=== PATIENT | female | born 1995 | race Caucasian/White ===

== ENCOUNTER → 2019-12-19 11:18 | Outpatient (CLI) | payer OTHER, MEDICAID, SELFPAY ==
--- NOTE | ~2019-12-19 | US_ITS ---
EXAMINATION: US OB <= 14 weeks fetus DATE: 12/19/2019 12:26 INDICATION: Evaluate well-being TECHNIQUE: Real-time transabdominal and transvaginal obstetric ultrasound. FINDINGS: No prior studies for comparison. The uterus measures 11.7 x 6.3 x 7.6 cm. There is an intrauterine gestational sac, with pole id entified. The crown rump length measures 5.08 cm, which correlates with a estimated gestational age of 11 weeks 5 days. heart tones are identified measuring 162 BPM. No evidence for subchorioni c hemorrhage. Ovaries within normal limits. No free fluid in the pelvis. IMPRESSION: 1. SL IUP with an EGA of 11 weeks, 5 days (EDC by current ultrasound of 05/04/2021). Reviewed, dictated and finalized at location A. IMPRESSION: 1. SL IUP with an EGA of 11 weeks, 5 days (EDC by current ultrasound of 021).
== END ==
PROVIDERS: PCP Obstetrics & Gynecology; Visit Provider Obstetrics & Gynecology
DX: Z34.90 Encounter for supervision of normal pregnancy, unspecified, unspecified trimester (principal); Z3A.11 11 weeks gestation of pregnancy
CPT/HCPCS: 76801

== ENCOUNTER → 2020-02-20 14:51 | Outpatient (CLI) | payer OTHER, MEDICAID, SELFPAY ==
--- NOTE | ~2020-02-20 | US_ITS ---
EXAMINATION: US OB >= 14 weeks Fetus DATE: 02/20/2020 15:54 INDICATION: Second trimester anatomic survey TECHNIQUE: Real-time ultrasound of the pelvis was performed. COMPARISON: None. FINDINGS: There is a single living fetus in breech presentation. The placenta is anterior and 4.4 cm from the i nternal cervical os. heart rate is 163 beats per minute (bpm). cardiac activity and feta l movement are noted. The amniotic fluid index is subjectively normal. The following anatomy was identified as normal: 4 chamber heart 3 vessel cord cord insertion kidneys urinary bladder stomach spine diaphragm ventricles cisterna magna cerebellum The following biometric data were obtained: Biparietal diameter (BPD): 4.8 cm; head circumference (HC): 18.6 cm; abdominal circumference (AC): 15 .6 cm; femur length (FL): 3.1 cm. These measurements are concordant. Estimated weight is 354 g +/- 53 g, which correlates with the 31st percentile when 07/04/2020 is used as estimated date of delivery. As single measurements, these parameters are each equal to the following estimated gestational ages w ith ranges of +/- 2 standard deviations: BPD: 20 weeks 5 days ( 19 weeks 0 days - 22 weeks 3 days). HC: 21 weeks 0 days ( 19 weeks 3 days - 22 weeks 3 days). AC: 20 weeks 6 days ( 18 weeks 5 days - 22 weeks 6 days). FL: 19 weeks 6 days ( 18 weeks 0 days - 21 weeks 5 days). estimated gestational age based solely on measurements from this exam is 20 weeks 4 days +/- 1 weeks 3 days. IMPRESSION: 1. Single living fetus in breech presentation. 2. Estimated weight is 354 g +/- 53 g, which correlates with the 31st percentile when 07/04/2020 is used as estimated date of delivery. Reviewed, dictated and finalized at location B. IMPRESSION: 1. Single living fetus in breech presentation. 2. Estimated weight is 354 g +/- 53 g, which correlates with the 31st per centile when 07/04/2020 is used as estimated date of delivery.
== END ==
PROVIDERS: Visit Provider Physician Assistant
DX: Z34.01 Encounter for supervision of normal first pregnancy, first trimester (principal); Z36.89 Encounter for other specified antenatal screening; Z3A.20 20 weeks gestation of pregnancy
CPT/HCPCS: 76805

== ENCOUNTER → 2020-04-20 11:21 | Outpatient (CLI) | payer OTHER, MEDICAID, SELFPAY ==
--- NOTE | ~2020-04-20 | US_ITS ---
EXAMINATION: US OB follow up DATE: 04/20/2020 11:40 INDICATION: Assess growth during third trimester . TECHNIQUE: Real-time ultrasound of the pelvis was performed. The interpreting radiologist was not pre sent for the study. COMPARISON: 02/20/2020 FINDINGS: There is a single living fetus in vertex presentation. The placenta is anterior and not low-lying wi th caudal margin 5.0 cm from the internal cervical os. heart rate is 144 beats per minute (bpm) . The amniotic fluid index is 16.4 cm, which is normal (5th%-95%: 9.2-23.1 cm at 29 weeks estimated gestational age). The following biometric data were obtained: BPD: 7.7 cm -> 30 weeks 6 days Head circumference: 27.7 cm -> 30 weeks 2 days Abdominal circumference: 27.1 cm -> 31 weeks 1 days Femur length: 5.7 cm -> 29 weeks 6 days These measurements are concordant. Head circumference to abdominal circumference ratio: 1.02 (normal range 0.97-1.18). Estimated weight: 1611 g (+/-) 242 g. or 3 lbs. 9 oz. (+/-) 9 oz. IMPRESSION: 1. Single living fetus in vertex presentation with heart rate of 144 bpm. 2. Normal amniotic fluid index of 16.4 cm. 3. Estimated weight is 84th percentile by Hadlock criteria when 07/04/2020 is used as the estima arcadio date of delivery (KUSHAL). Please correlate with clinical information or earlier ultrasounds for mos t accurate KUSHAL. Reviewed, dictated and finalized at location A. ND MATE IMPRESSION: 1. Single living fetus in vertex presentation with heart rate of 144 bpm. 2. Normal amniotic fluid index of 16.4 cm. 3. Estimated weight is 84th percentile by Hadlock criteria when 07/04/2020 is used as the estimated date of delivery (KUSHAL). Please correlate with clinica l information or earlier ultrasounds for most accurate KUSHAL.
== END ==
PROVIDERS: Visit Provider Obstetrics & Gynecology
DX: Z34.01 Encounter for supervision of normal first pregnancy, first trimester (principal); Z3A.00 Weeks of gestation of pregnancy not specified
CPT/HCPCS: 76816

== ENCOUNTER → 2020-05-12 13:57 | Outpatient (CLI) | payer OTHER, MEDICAID, SELFPAY ==
--- NOTE | ~2020-05-12 | US_ITS ---
EXAMINATION: US OB follow up DATE: 05/12/2020 14:33 INDICATION: Estimated size greater than expected for estimated gestational age. Assess growth d uring third trimester . TECHNIQUE: Real-time ultrasound of the pelvis was performed. The interpreting radiologist was not pre sent for the study. COMPARISON: 04/20/2020 FINDINGS: There is a single living fetus in vertex presentation. The placenta is anterior and not low-lying. F etal heart rate is 150 beats per minute (bpm). The amniotic fluid index is 16.1 cm, which is normal (5th%-95%: 8.6-24.2 cm at 32 weeks estimated gestational age). The following biometric data were obtained: BPD: 8.5 cm -> 34 weeks 2 days Head circumference: 31.5 cm -> 35 weeks 2 days Abdominal circumference: 29.9 cm -> 33 weeks 6 days Femur length: 6.7 cm -> 34 weeks 3 days These measurements are concordant. Head circumference to abdominal circumference ratio: 1.05 (normal range 0.94-1.11). Estimated weight: 2376 g (+/-) 356 g. or 5 lbs. 4 oz. (+/-) 13 oz. IMPRESSION: 1. Single living fetus in vertex presentation with heart rate of 150 bpm. 2. Normal amniotic fluid index of 16.1 cm. 3. Estimated weight is 90th percentile by Hadlock criteria when 07/04/2020 is used as the estima arcadio date of delivery (KUSHAL). Please correlate with clinical information or earlier ultrasounds for mos t accurate KUSHAL. Reviewed, dictated and finalized at location A. T FINISHER IMPRESSION: 1. Single living fetus in vertex presentation with heart rate of 150 bpm. 2. Normal amniotic fluid index of 16.1 cm. 3. Estimated weight is 90th percentile by Hadlock criteria when 07/04/2020 is used as the estimated date of delivery (KUSHAL). Please correlate with clinica l information or earlier ultrasounds for most accurate KUSHAL.
== END ==
PROVIDERS: Visit Provider Physician Assistant
DX: O35.8XX9 Maternal care for other (suspected) fetal abnormality and damage, other fetus (principal); Z3A.00 Weeks of gestation of pregnancy not specified
CPT/HCPCS: 76816

== ENCOUNTER → 2020-06-17 13:02 | Outpatient (CLI) | payer OTHER, MEDICAID, SELFPAY ==
--- NOTE | ~2020-06-17 | US_ITS ---
EXAMINATION: US OB follow up EXAM DATE: 06/17/2020 13:19 INDICATION: Growth, check position. 3rd trimester. TECHNIQUE: Pelvic obstetrical transabdominal sonogram was performed by a technologist. There are mu ltiple grayscale and Doppler images available for interpretation. There are no earlier studies of th is gestation for comparison. FINDINGS: There is a single fetus identified in vertex presentation with a heart rate of 131 beats pe r minute. The placenta is located in the anterior position. There is no sonographic evidence of retr oplacental hemorrhage identified. The amniotic fluid index is 19.4 centimeters, which is normal. BIOMETRIC DATA: Biparietal diameter (BPD): 9.5cm ----------------> 38 weeks 6 days. Head circumference (HC): 33.5 cm ----------------> 38 weeks 2 days. Abdominal circumference (AC): 35.6 cm ----------> 39 weeks 3 days. Femur length (FL): 7.2 cm --------------------------> 36 weeks 6 days. These measurements are concordant. HC/AC ratio is 0.94 (The 5th -- 95th percentile range is 0.88-1.06. Estimated weight is 3569 g +/- 535 g. This is the 85th percentile when the currently reported clinical gestation age 37 weeks 4 days, clinical estimated date of delivery (KUSHAL-OPE) 07/04/2020 is us ed. estimated gestational age based on measurements from this exam is 38 weeks 3 days, with an estimated date of delivery (KUSHAL-AUA) 06/28/2020. IMPRESSION: 1. Single fetus in vertex presentation with heart rate 131 beats per minute. 2. Estimated weight of 3569 grams, 85th percentile using the currently reported clinical gesta tion age of 37 weeks 4 days, KUSHAL(OPE) 07/04/2020. 3. Normal ZAHIDA 19.4 cm. Reviewed, dictated and finalized at location A. SETTER IMPRESSION: 1. Single fetus in vertex presentation with heart rate 131 beats per minute. 2. Estimated weight of 3569 grams, 85th percentile using the currently r eported clinical gestation age of 37 weeks 4 days, KUSHAL(OPE) 07/04/2020. 3. Normal ZAHIDA 19.4 cm.
== END ==
PROVIDERS: Visit Provider Obstetrics & Gynecology
DX: Z03.74 Encounter for suspected problem with fetal growth ruled out (principal)
CPT/HCPCS: 76816

== ENCOUNTER 2020-06-30 11:03 | Observation (INO) | payer OTHER, MEDICAID, SELFPAY ==
--- NOTE | 2020-06-30 13:34 | OBADM ---
This patient, Payal Simmons, admitted to the OB room OB Post 117 for observation. Patient/family oriented to hospital policies and general routines including ID bracelet, bed and alarms, visiting hours, pain management, procedures, bathroom and other care routines, personal items, smoking policy, room service/diet, and visiting hours. Patient/Family are encouraged to report perceived risks to care and to ask questions if they do not understand what they are told or what they should do.
[2020-06-30 13:39] LABS: Add Urine Microscopic? YES; Appearance Urine Cloudy (Clear); Bacteria Urine Trace /hpf; Bilirubin Urine Negative (Negative); Blood Urine 2+ (Negative); Color Urine Yellow (Yellow); Glucose Urine UA Negative (Negative); Ketones Urine Negative (Negative); Leukocyte Esterase Ur Trace LEU/UL (NEGATIVE); Mucus Urine Heavy /lpf; Nitrate Urine Negative (Negative); Protein Urine 2+ mg/dL (Negative); RBC Urine 0-2 /hpf (0-2); Specific Grav Ur 1.025 (1.001-1.035); Squamous Epithelial Cell Urine Many /hpf (Few); Urobilinogen Urine Negative mg/dL (<2.0)
--- NOTE | 2020-06-30 13:45 | PC.NURSE ---
1200 speculum exam noted no blood or discharge. sve closed (pt closing legs tight) baby head is low causing her tailbone pain. uterine irritability discussed vs ctxs.
--- NOTE | 2020-06-30 19:08 | PM.OBTRLD ---
OB - Triage/Final Diagnosis Visit Information Date of evaluation: 06/30/20 Comments/Additional reasons for admission: I have assessed the risk for this patient, Payal Simmons, and determined that she would benefit from observation care. Evaluation Baseline heart rate: 144 Variability: Average (6-10) monitor accelerations: Present monitor decelerations: None Laboratory results: Laboratory Tests 06/30/20 13:22 Urine Color Yellow Urine Appearance Cloudy H Urine pH 6.0 Ur Specific [place] 1.025 Urine Protein 2+ H Urine Glucose (UA) Negative Urine Ketones Negative Ur Blood (Man) 2+ H Urine Nitrate Negative Urine Bilirubin Negative Urine Urobilinogen Negative Ur Leukocyte Esterase Trace H Urine RBC 0-2 Urine WBC 7-9 H Ur Squamous Epith Cells Many H Urine Bacteria Trace Urine Mucus Heavy H Final Diagnosis (1) False labor: Code(s): O47.9 - False labor, unspecified Status: Acute
--- NOTE | 2020-07-17 03:20 | P.PNOB_ITS ---
OB - PN: Subj Subjective Date/time seen: 07/02/20 03:20 Patient comments: no complaints baby status: doing well [place] feeding status: pumping and bottle feeding OB - PN A/P Assessment and Plan (1) Term delivered: Code(s): O80 - Encounter for full-term uncomplicated delivery Status: Acute (2) Previous section: Code(s): Z98.891 - History of uterine scar from previous surgery Status: Acute (3) Homozygous MTHFR mutation C677T: Code(s): E72.12 - Methylenetetrahydrofolate reductase deficiency Status: Acute (4) Large for gestational age fetus: Status: Acute (5) Anemia affecting : Code(s): O99.019 - Anemia complicating , unspecified trimester Status: Acute Plan day: 2 Plan: routine care, discharge home and follow up 6 weeks Time Spent With Patient Time: Total time spent is greater than 50% in coordination of care (as documented) at patient's floor/unit and/or counseling patient: Review of Systems Review of Systems: All systems reviewed & are unremarkable except as noted in HPI and below Exam Const: General: cooperative HENMT: Head: normal to inspection Eyes: General: appearance normal, both eyes and all related structures Neck: Neck: normal visual inspection Chest: Chest palpation & inspection: normal inspection of the chest Resp: Effort & Inspection: normal respiratory effort Cardio: Rate: regular rate Rhythm: regular rhythm GI: Inspection: normal to inspection and incision (ddi) GI Palp: Yes Soft to palpation : External Female Exam: normal external appearance Bimanual exam- vagina & uterus: non-tender Back/Spine/Pelvis: Back: no CVA tenderness Skin: General skin exam: normal color Neuro: General: patient oriented x3 Extrem: General: normal to inspection Psych: Appearance: grossly normal
== END 2020-06-30 13:20 | disposition home or self-care (01) ==
PROVIDERS: Admitting Provider Obstetrics & Gynecology; Visit Provider Obstetrics & Gynecology
DX: O47.03 False labor before 37 completed weeks of gestation, third trimester (principal); Z3A.39 39 weeks gestation of pregnancy
CPT/HCPCS: 81001; 87086; 87088; G0378; G0379

== ENCOUNTER 2020-07-01 18:00 | Inpatient (IN) | payer OTHER, MEDICAID, SELFPAY ==
[2020-07-01] VITALS (62 sets, daily range): BP systolic 98–150; BP diastolic 47–105; PULSE 56–99; RESP 15–18; TEMP 36.2–36.6; O2SAT 91–100; BMI 22.6
--- NOTE | 2020-07-01 18:27 | WPDANESEPP ---
Anes - Eval Pre Procedure Procedure: Operation Date: 07/01/20 19:00 Proposed Procedures p Repeat Low Transverse Section - Gerardo Mixon MD Date/Time: 07/01/20 18:27 Preop Diagnosis: previous c section Pre Op Diagnosis: C Section Patient Data Age: 25 Gender: F Height: Weight: Allergies Allergy/AdvReac Type Severity Reaction Status Date / Time No Known Allergies Allergy Verified 06/18/20 12:41 Home Medications Medication Instructions Recorded Confirmed Type PNV cmb#95-ferrous fumarate-FA 1 tablet PO DAILY 06/18/20 06/18/20 History [] Patient hx anesthesia problems: none Family hx anesthesia problems: none PMFSH Family History Family History (Updated 06/18/20 @ 12:42 by Gale Diaz RN) Other No pertinent family history Social History Social History Substance use: never Gender identity (if verbalized by the patient): Female Spiritual care concerns: No Exam Day of Procedure 07/01/20 18:27
--- NOTE | 2020-07-01 18:28 | PM.IMHP ---
H&P: HPI History of Present Illness Date/Time: 07/01/20 18:28 Chief Complaint: Spontaneous onset of labor Term Previous desires repeat section Narrative: Payal Simmons is a 25 year old female presents for spontaneous onset of labor carri every 5 minutes at 39w4d. c/b MTHFR, hyperemesis, and LGA fetus. Previous scheduled for repeat on 07/03. Will proceed with repeat c section tonight.I explained her condition procedure and risks involved including but not limited to bleeding infection injury to bladder bowel baby pelvic vessels DVT pneumonia wound infection endometritis UTI the risk of anesthesia she understands accepts and agrees to proceed Review of Systems Review of Systems: All systems reviewed & are unremarkable except as noted in HPI and below Constitutional: Constitutional: Reports no additional constitutional complaints Eyes: Eyes: Reports no additional eye complaints ENT: Reports system reviewed and no additional complaints, except as documented Cardiovascular: Cardiovascular: Reports no additional cardiovascular complaints Respiratory: Respiratory: Reports no additional respiratory complaints Gastrointestinal: Gastrointestinal: Reports no additional gastrointestinal complaints Genitourinary: Genitourinary: Reports no additional female genitourinary complaints Musculoskeletal: Musculoskeletal: Reports no additional musculoskeletal complaints Integumentary/Breasts: Skin/Breast: Reports system reviewed and no additional complaints, except as docu Neurologic: Reports system reviewed and no additional complaints, except as documented Psychiatric: Psychiatric: Reports no additional psychiatric complaints PMFSH Past Medical History Medical History (Updated 07/01/20 @ 18:34 by Gerardo Mixon MD) Generalized anxiety disorder Homozygous MTHFR mutation [id number] Large for gestational age fetus Term Surgical History Surgical History (Updated 07/01/20 @ 18:35 by Gerardo Mixon MD) Previous section 01/18/20181398 lbs.MPrimary CesareanFull [facility] position[facility]ical Family History Family History Other No pertinent family history Social History Social History (Updated 07/01/20 @ 18:36 by Gerardo Mixon MD) Smoking status: Never smoker Second hand tobacco smoke exposure: No Alcohol intake: never Substance use: former Substance use type: marijuana Living arrangements: with family Occupation/Education: occupation Gender identity (if verbalized by the patient): Female Sexual Orientation (if Verbalized by the Patient): Straight or Heterosexual Spiritual care concerns: No Agree to blood products: Yes Meds Home Medications and Allergies Home Medications Medication Instructions Recorded Confirmed Type PNV cmb#95-ferrous fumarate-FA 1 tablet PO DAILY 06/18/20 06/18/20 History [] Allergies Allergy/AdvReac Type Severity Reaction Status Date / Time No Known Allergies Allergy Verified 06/18/20 12:41 Exam Const: General: no acute distress HENMT: Head: normal to inspection Ears: hearing grossly normal bilaterally General nose exam: Normal external nose present and Normal nares present Face and sinus: normal facial exam Mouth: Yes Normal oral and palatal mucosa present and Yes moist mucous membranes Teeth and gingiva: dentition normal Throat: posterior oropharynx normal Eyes: General: appearance normal, both eyes and all related structures Visual Lizama: normal visual lizama by confrontation Alignment and Position: alignment normal Periorbital: periorbital findings normal Eyelids: eyelids normal Conjunctivae: conjunctivae normal Sclera: sclerae normal Pupils: Equal, round and reactive pupils present EOM: EOMs intact bilaterally
--- NOTE | 2020-07-01 18:42 | P.HPUP_ITS ---
History and Physical Update Update Date/Time: 07/01/20 18:42 History and Physical has been reviewed, including an updated exam of the patient. There are NO changes in the patient's condition. Risks, benefits, and alternatives have been discussed and questions answered. Patient agrees to proceed with procedure. 24 y/o F presents for spontaneous onset of labor carri every 5 minutes at 39w4d. c/b MTHFR, hyperemesis, and LGA fetus. Previous c- section scheduled for repeat on 07/03. Will proceed with tonight due to labor informed consent obtained yes to circumcision, bottle feeding, frozen meat cutter lamar leono for BC - boy per labs, thinking Raul for name
--- NOTE | 2020-07-01 18:45 | P.HP_ITS ---
Obstetrics - Admit Note Admission Note: record reviewed. No pertinent additions to the history and/or any subsequent changes in the physical findings that are not consistent with the expected course of the were found. Additions to the history and/or subsequent changes in the physical findings follow. None. 24 y/o F presents for spontaneous onset of labor denies rupture membranes or vaginal bleeding but carri every 5 minutes for the past 4 days at 39w4d. c/b MTHFR, hyperemesis, and LGA fetus. Previous c- section scheduled for repeat on 07/03/20 will proceed with repeat C- section this evening under spinal anesthesia I explained her condition procedure and risks involved she understands accepts and agrees to proceed informed consent obtained.
[2020-07-01 18:50] LABS: Basophils Percent Auto 0.3 % (0.2-1.2); Eosinophils Percent Auto 0.2 % (0-4.4); Hematocrit 35.3 % (37.0-47.0); Immature Granulocyte Absolute 0.09 K/mm3 (0.00-0.031); Immature Granulocyte Percent A 0.8 % (0-0.5); Lymphocytes Absolute Auto 2.13 K/mm3 (0.9-3.2); Lymphocytes Percent Auto 17.9 % (18.3-44.2); Mean Corpuscular Hemoglobin 29.6 pg (26-34); Mean Corpuscular Volume 86.9 fl (80-100); Mean Platelet Volume 10.2 fl (7.4-10.4); Monocytes Percent Auto 8.5 % (2.6-8.5); Neutrophils Absolute Auto 8.6 K/mm3 (1.3-6.7); Neutrophils Percent Auto 72.3 % (45.5-73.1); Platelet Count Result 297 k/mm3 (150-375); Red Blood Count 4.06 M/mm3 (4.2-5.4); White Blood Count 11.9 K/mm3 (4.5-10.0)
[2020-07-01] MEDS: LACTATED RINGERS 1,000 ML 125 ML IV CONT (18:53)
--- NOTE | 2020-07-01 18:54 | P.OP_ITS ---
Procedure Note - Detailed Date of procedure: 07/01/20 Pre-op diagnosis: C Section Term Spontaneous onset of labor Previous desires repeat section MTHFR homozygous Generalized anxiety disorder Large for gestational age fetus Post-op diagnosis: same (Delivered viable male infant) Procedure performed: Repeat low-transverse section with delivery of viable male and placenta Description of procedure: Patient was taken to the operating room spinal anesthetic was administered in the sitting position patient was then placed in a supine position a Nice catheter was inserted her abdomen was prepped and then draped in the usual sterile fashion. Time-out was performed. Elliptical incision was made around the old scar and the old scar was excised using electrocautery. Fascia was entered with electrocautery and undermined inferior and superior. We peritoneum entered with electrocautery the vesicouterine peritoneal reflection was incised transversely a transverse incision was made to the lower uterine segment and extended bilaterally digitally rupture membranes revealed clear fluid the vertex was then delivered via the abdominal incision with fundal pressure with a nuchal cord x1 reduced upon delivery. The baby was placed on the maternal abdomen the nose and throat were bulb suction the cord was clamped and cut and the infant had spontaneous respirations and cry was handed to the nursery nurse in attendance scores 8 9 weight 8 lb 13 oz spine normal transition taken to the nursery in stable condition with a normal exam. Cord gas segment was sent. Cord blood was obtained. The placenta was then delivered intact with a three-vessel cord and the uterus contracted well with Pitocin given intravenously as well as 10 units given into the myometrium. Blood clots removed from the intrauterine cavity and then the uterine incision was repaired in 2 layers with 0 Vicryl in a running interlocking fashion the 2nd being an imbricating stitch hemostasis was excellent. Blood clots removed from the cul-de-sac and the uterus was returned to the peritoneal cavity sponge needle instrument counts were correct the anterior peritoneum was then closed with 0 Vicryl suture in a running fashion. The fascia was closed with 2. Quill S RS bilaterally. The skin was closed with absorbable bert and the skin closed with Dermabond a sterile dressing was applied. The patient was taken to the recovery room in stable condition counts correct complications none specimens pathology as above. Implants: None Anesthesia: spinal Surgeon: Gerardo Mixon MD [employer] Intelligence Officer Chief: assistant producer x2 Estimated blood loss (mL): 390 IV fluids (mL): 2,000 Urine output (mL): 200 Drains: Yes (Nice catheter) Packing: No Pathology: yes (Cord blood gases cord blood and placenta) Complications: None Condition: stable Disposition: floor Findings: Viable male infant named [id number] delivered at 7:34 p.m. spontaneous respirations and cry no observed abnormalities on the exam taken to the nursery in stable condition weight 8 lb 13 oz 20-1/2 inches long Placenta intact three-vessel cord nuchal cord x1 cord gases obtained cord blood obtained placenta sent to pathology Uterus tubes ovaries normal Counts correct Complications none Patient taken recovery room in stable condition
--- NOTE | 2020-07-01 19:25 | WPDANESEFPP ---
Anes - Eval Final PreProcedure Day of Procedure 07/01/20 19:25 Patient weight: obese Heart: regular rate and rhythm Lungs: clear to auscultation Airway: Mallampati scale class II Neurological: alert and oriented ASA classification: II Emergent: no Anesthetic plan: proceed Anesthesia type and monitoring: regional spinal and standard monitoring Informed Consent: The patient's anesthetic plan and its attendant risks and benefits were discussed with the patient/family/POA. Questions were solicited and answers provided to the satisfaction of the patient/family/POA.
[2020-07-01] MEDS: KETOROLAC 30 MG/ML VIAL (*BKC) IV PUSH (19:40)
--- NOTE | 2020-07-01 20:13 | PM.OBPRVD ---
OB - Delivery Note Procedure Delivery date: 07/01/20 Procedure: Procedures Operation Date: 07/01/20 19:00 Actual Procedures Side Surgeon p Repeat Low Transverse Section Gerardo Mixon MD Induction method: none Delivery monitor: external FHT and external uterine Route of delivery: (Repeat low-transverse) Episiotomy description: None Laceration Description: None Specimen: Yes Anesthesia type: Spinal Disposition: floor Baby Date of : 07/01/20 Time of : 19:34 Weeks of gestation at delivery: 39 gender: Male (STACEY) Weight (pounds): 8 Weight (ounces): 13 presentation: vertex position: Left Occiput Anterior Placenta delivery description: Manual Removal and Normal Configuration cord vessel description: Nuchal Cord score one minute: 8 score five minutes: 9 Twins 1: Infant gender: Male
--- NOTE | 2020-07-01 21:04 | LDADM ---
This patient, Payal Simmons, was admitted to Labor/Delivery/Recovery 120 on 07/01/20 at 18:00. Plans for labor, pain management and were discussed with patient. Patient/family oriented to hospital policies and general routines including ID bracelet, bed and alarms, visiting hours, pain management, procedures, bathroom and other care routines, personal items, smoking policy, room service/diet and guest tray routines, infant security routines, and visiting hours. Patient/Family are encouraged to report perceived risks to care and to ask questions if they do not understand what they are told or what they should do. See OBIX for further documentation.
[2020-07-01] MEDS: OXYTOCIN 30 UNITS/NS 500 ML 30 UNITS/500 ML BAG 125 UNITS IV CONT (21:47)
--- NOTE | 2020-07-01 23:00 | OBPPTRN ---
Patient transferred to post room #292 via stretcher. Support person went home to be with their other child. Oriented to unit, room, information board, rooming in, admission packet and security measures. Patient verbalizes understanding. with patient.
[2020-07-01] MEDS: MORPHINE SULFATE (*CRX) 2 MG/ML INJ 3 MG IV PUSH (23:20)
[2020-07-02] VITALS (8 sets, daily range): BP systolic 93–120; BP diastolic 52–73; PULSE 77–118; RESP 16; TEMP 36.3–37.3; O2SAT 97–100
[2020-07-02] MEDS: DEXTROSE 5%/0.45% SOD CHL 1,000 ML 125 ML IV CONT (01:39)
[2020-07-02] MEDS: ONDANSETRON INJ 4 MG/2 ML VIAL IV PUSH ×2 (01:46→09:07)
[2020-07-02] MEDS: KETOROLAC 30 MG/ML VIAL (*BKC) IV PUSH ×2 (01:52→09:08)
[2020-07-02 05:14] LABS: Hematocrit 23.3 % (37.0-47.0); Hemoglobin 7.8 g/dL (12.0-15.0); Mean Corpuscular HGB Conc 33.5 g/dl (32-36); Mean Corpuscular Hemoglobin 29.7 pg (26-34); Mean Corpuscular Volume 88.6 fl (80-100); Mean Platelet Volume 10.2 fl (7.4-10.4); Platelet Count Result 359 k/mm3 (150-375); Red Blood Count 2.63 M/mm3 (4.2-5.4); Red Cell Distribution Width 13.2 % (11.5-14.5); White Blood Count 21.7 K/mm3 (4.5-10.0)
[2020-07-02 06:18] LABS: Rapid Plasma Reagin Non-Reactive (NonReactive)
[2020-07-02 06:29] LABS: Band Neutrophils Percent 8 % (0-6); Giant Platelets Present; Lymphocytes Absolute Manual 1.95 K/mm3 (1.1-4.5); Neutrophils Absolute Manual 19.74 K/mm3 (1.7-7.2); Neutrophils Percent Manual 83 % (46-73); Platelet Estimate Increased (Adequate); Total Cells Counted 100
--- NOTE | 2020-07-02 07:32 | WPDANLDPN2 ---
Anes-Prog Note L&D Date/Time: 07/02/20 07:32 Comfortable throughout: section Neuraxial method: spinal Epidural/Spinal procedure site: clean & non-tender Neuro status: Neuro function grossly intact. Cardiovascular status: normal Respiratory status: normal Airway patency: baseline Mental status: baseline Post-Op hydration status: normal (catheter still in place) Vital Signs: Last Vital Signs Temp 36.3 C L 07/02/20 04:30 Pulse 118 H 07/02/20 04:30 Resp 16 07/02/20 04:30 BP 100/66 07/02/20 04:30 Pulse Ox 98 07/02/20 04:30 Pain score (VAS): 0 I/O: Intake & Output 07/01/20 07/01/20 07/02/20 15:59 23:59 07:59 Output Total 300 150 Balance -300 -150 Post-procedural complaints: none Patient feedback: Patient satisfied with anesthetic care.
--- NOTE | 2020-07-02 07:33 | WPDANLDNPN2 ---
Anes-Prog Note L&D-Neuraxial Date/Time: 07/02/20 07:33 Neuraxial medications: intrathecal PF morphine Opiod-related complaints: none Patient feedback: Patient satisfied with post-operative pain management.
--- NOTE | 2020-07-02 07:45 | PC.NURSE ---
PT introductions made and plan of care discussed per post op c section, pain management, bottle feeding and daily care activities. PT verbalized understanding of such care.
[2020-07-02] MEDS: SIMETHICONE 80 MG TAB.CHEW PO ×2 (09:06→15:58)
[2020-07-02] MEDS: DOCUSATE SODIUM 100 MG CAPSULE PO ×2 (09:10→15:58)
[2020-07-02] MEDS: POLYSACCHARIDE IRON COMPLEX 150 MG CAPSULE PO ×2 (09:10→15:58)
[2020-07-02] MEDS: KCL 20 MEQ/D5/0.45% SOD CHL 1,000 ML 125 ML IV CONT (09:20)
[2020-07-02] MEDS: ACETAMINOPHEN 325 MG TABLET 650 MG PO ×2 (15:56→23:45)
[2020-07-02] MEDS: IBUPROFEN 600 MG TABLET PO ×2 (15:59→23:45)
[2020-07-03] MEDS: IBUPROFEN 600 MG TABLET PO ×2 (05:22→13:03)
--- NOTE | 2020-07-03 07:25 | P.PNOB_ITS ---
OB - PN: Subj Subjective Date/time seen: 06/13/20 07:25 Interval history: pod#1 repeat c/s Patient comments: no complaints, pain well controlled, tolerating diet and flatus present [place] baby status: doing well [place] feeding status: exclusively bottle feeding OB - PN: Obj Data Labs CBC & Chem 7: 07/02/20 04:36 OB - PN A/P Assessment and Plan (1) Term delivered: Code(s): O80 - Encounter for full-term uncomplicated delivery Status: Acute (2) Previous section: Code(s): Z98.891 - History of uterine scar from previous surgery Status: Acute Time Spent With Patient Time: Total time spent is greater than 50% in coordination of care (as documented) at patient's floor/unit and/or counseling patient: Review of Systems Review of Systems: All systems reviewed & are unremarkable except as noted in HPI and below Exam Const: General: cooperative, healthy appearing, comfortable, no acute distress, well developed, alert, awake and Physically active Nutritional Appearance: well nourished Orientation/consciousness: oriented to person L imitations: no limitations HENMT: Head: normal to inspection Eyes: General: appearance normal, both eyes and all related structures Neck: Neck: normal visual inspection Chest: Chest palpation & inspection: normal inspection of the chest Resp: Effort & Inspection: normal respiratory effort Auscultation: clear to auscultation bilaterally Cardio: Rate: regular rate Rhythm: regular rhythm GI: Inspection: normal to inspection and incision (dressing dry and intact) GI Palp: Yes Soft to palpation Percussion: Yes normal to percussion Auscultation: normal bowel sounds : External Female Exam: normal external appearance Bimanual exam- vagina & uterus: non-tender Urinary Catheter: Urinary Catheter: patent and draining and urine clear Back/Spine/Pelvis: Back: no CVA tenderness Skin: General skin exam: normal color Neuro: General: patient oriented x3, gait normal, tone normal, moves all extremities, Normal light touch and pain sensation and CN's II-XI intact bilaterally Cognition (Neuro): normal cognition Speech: normal speech Extrem: General: normal to inspection, abnormal ROM and no calf tenderness Psych: Appearance: grossly normal Mental Status: mental status grossly normal Speech and movement: Normal speech and movement present Affect: normal affect Attitude: cooperative Thought process: Normal thought process present Thought content: Yes Normal thought content present Insight: Good insight present (Psych) Judgement: Good judgement present (Psych)
[2020-07-03 08:30] VITALS: BP 123/61; PULSE 88; RESP 16; TEMP 37.4; O2SAT 100
[2020-07-03] MEDS: DOCUSATE SODIUM 100 MG CAPSULE PO (08:49)
[2020-07-03] MEDS: POLYSACCHARIDE IRON COMPLEX 150 MG CAPSULE PO (08:50)
[2020-07-03] MEDS: SIMETHICONE 80 MG TAB.CHEW PO (08:54)
--- NOTE | 2020-07-03 11:26 | PM.OBDSVD ---
DS: Admitting Diagnosis Admitting Diagnosis Admitting Diagnosis: Term Spontaneous onset of labor Previous section desires repeat section MTHFR homozygous Generalized anxiety disorder Large for gestational age DS: Discharge Diagnosis Discharge Diagnosis (1) Homozygous MTHFR mutation C677T: Code(s): E72.12 - Methylenetetrahydrofolate reductase deficiency Status: Acute (2) Previous section: Code(s): Z98.891 - History of uterine scar from previous surgery Status: Acute (3) Large for gestational age fetus: Status: Acute (4) Spontaneous onset of labor: Status: Acute (5) Generalized anxiety disorder: Code(s): F41.1 - Generalized anxiety disorder Status: Acute (6) Term delivered: Code(s): O80 - Encounter for full-term uncomplicated delivery Status: Acute OB - DS: Summary Hospital Course Time spent discussing smoking cessation with patient: 3 to 10 minutes OB Procedures : Ultrasound OB Procedures Intrapartum: low cervical, transverse OB Procedures: : None Peripartum Data Delivery Method: Section Laceration Description: None Episiotomy description: None Procedures: Procedures Operation Date: 07/01/20 19:00 Actual Procedures Side Surgeon p Repeat Low Transverse Section Gerardo Mixon MD complications: none [place] 1: Gender: Male (STACEY) Disposition of : home Status at Discharge Functional status at discharge: independent ambulation Overall status at discharge: patient is back to baseline Time Spent with Patient Time attestation: Total time spent providing and/or coordinating discharge services: Time spent: Less than 30 minutes Exam Const: General: cooperative, healthy appearing, comfortable, no acute distress, well developed, alert, awake and Physically active Nutritional Appearance: average body habitus Orientation/consciousness: oriented to person Limitations: no limitations HENMT: Head: normal to inspection Ears: hearing grossly normal bilaterally General nose exam: Normal external nose present Face and sinus: normal facial exam Mouth: Yes Normal oral and palatal mucosa present Teeth and gingiva: dentition normal Throat: posterior oropharynx normal Eyes: General: appearance normal, both eyes and all related structures Neck: Neck: normal visual inspection and full ROM Chest: Chest palpation & inspection: normal inspection of the chest Breast/axilla inspection: normal inspection of the breasts Resp: Effort & Inspection: normal respiratory effort Auscultation: clear to auscultation bilaterally Cardio: Rate: regular rate Rhythm: regular rhythm Heart sounds: S1 normal heart sound present and S2 normal heart sound present GI: Inspection: normal to inspection and incision (Dressing dry and intact) GI Palp: Yes Soft to palpation Percussion: Yes normal to percussion Auscultation: normal bowel sounds : External Female Exam: normal external appearance Bimanual exam- vagina & uterus: non-tender Back/Spine/Pelvis: Back: no CVA tenderness Skin: General skin exam: normal color Neuro: General: patient oriented x3, gait normal, tone normal, moves all extremities, Normal light touch and pain sensation and CN's II-XI intact bilaterally Extrem: General: normal to inspection, full ROM and no calf tenderness Psych: Appearance: grossly normal Mental Status: mental status grossly normal Speech and movement: Normal speech and movement present Affect: normal affect Attitude: cooperative Thought process: Normal thought process present Thought content: Yes Normal thought content present Insight: Good insight present (Psych) Judgement: Good judgement present (Psych) DS: Data Data Completed and Pending Labs on day of discharge: Labs from last 24 hours 07/01/20 07/01/20 18:36 18:36 WBC 11.9 H RBC 4.06 L
[2020-07-03] MEDS: ACETAMINOPHEN 325 MG TABLET 650 MG PO (13:02)
[2020-07-06 11:32] VITALS: BP 120/68; PULSE 95; RESP 20; TEMP 36.7; O2SAT 100
== END 2020-07-03 14:55 | disposition home or self-care (01) | DRG 787 ==
LOC: ANHLDR 20:17 → ANHOB2 23:08
PROVIDERS: Admitting Provider Obstetrics & Gynecology; Visit Provider Obstetrics & Gynecology
DX: O34.211 Maternal care for low transverse scar from previous cesarean delivery (principal); E72.12 Methylenetetrahydrofolate reductase deficiency; O99.284 Endocrine, nutritional and metabolic diseases complicating childbirth; O36.63X0 Maternal care for excessive fetal growth, third trimester, not applicable or unspecified; O69.81X0 Labor and delivery complicated by cord around neck, without compression, not applicable or unspecified; Z3A.39 39 weeks gestation of pregnancy; Z37.0 Single live birth
CPT/HCPCS: 36415; 85025; 86592; 86850; 86900; 86901; 88307; A9270; J0131; J1885; J1940; J2175; J2270; J2274; J2370; J2405; J2590; J3480; J7120

== ENCOUNTER 2020-08-01 17:03 | Emergency (ER) | payer OTHER, MEDICAID, SELFPAY ==
--- NOTE | ~2020-08-01 | CT_ITS ---
EXAMINATION: CT abdomen pelvis w con EXAM DATE: 08/01/2020 18:19 INDICATION: Right lower quadrant pain. section one month ago. TECHNIQUE: Spiral CT of the abdomen and pelvis was performed following intravenous injection of 100 m L Omnipaque 350. Axial, coronal and sagittal images were reviewed. The dose-length product (DLP) fo r this examination was 189.55 mGy-cm. The exposure was tailored according to patient size (auto mA e xposure control), and iterative reconstruction (ASIR) was used as additional dose reduction technique . There is no prior study for comparison. FINDINGS: There is lenticular shaped fluid collection within the lower abdominal wall measuring 1 cm in thickness by 5 x 8 cm. There is another pocket of fluid along the anterior aspect of the bladder wall measuring 2.7 cm in diameter. There is faint enhancement suspected along the castro of both of th lucía, could be abscesses rather than postoperative seromas. There is mild generalized fat stranding chavez rrounding the bladder and uterus, and small amount of free pelvic fluid without contained rim-enhanci ng fluid collection. Probable identification of a normal appendix, has been indicated on image 115. The liver, spleen, adrenal glands and pancreas are unremarkable. Gallbladder is unremarkable. No bi liary obstruction. Portal and splenic veins are patent. Kidneys enhance symmetrically. There is no hydronephrosis. The bladder is unremarkable. There is no retroperitoneal or pelvic lymphadenopath y. There is expected amount of colonic stool. No free intraperitoneal gas. The heart is normal in si ze. There are no pericardial or pleural effusions. The lung bases are unremarkable. There are no o steoblastic or osteolytic lesions identified. IMPRESSION: Two fluid collections, one lenticular shaped along the lower abdominal wall and another s maller anterior to the bladder, with mildly enhancing castro, possible abscesses. Differential diagnos is includes noninfected postoperative seromas. Clinical correlation. Reviewed, dictated and finalized at location A. 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 Differential diagnosis includes noninfected postoperati ve seromas. Clinical correlation.
--- NOTE | ~2020-08-01 | US_ITS ---
EXAMINATION: US pelvic complete w TV EXAM DATE: 08/01/2020 19:44 INDICATION: Right sided pelvic pain, r/o torsion . 4 weeks . TECHNIQUE: Pelvic transabdominal and transvaginal sonogram was performed. There are multiple graysca le and Doppler images available for interpretation. There is no prior study for comparison. FINDINGS: Uterus measures 9.2 x 4.9 x 5.9 cm, and is morphologically normal. Endometrial stripe lavon sures 8 mm, within normal limits. There is small free pelvic fluid. Right adnexa: The ovary measures 3.7 x 2.0 x 2.7 cm and is morphologically normal. Ovarian vascular f low confirmed. Left adnexa: The ovary measures 3.4 x 2.6 x 2.3 cm and is morphologically normal. Ovarian vascular fl ow confirmed. IMPRESSION: 1. Unremarkable pelvic ultrasound exam. Reviewed, dictated and finalized at location A. 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
[2020-08-01 17:05] VITALS: BP 116/100; PULSE 96; RESP 18; TEMP 36.8; O2SAT 100
[2020-08-01 17:26] LABS: Basophils Absolute Auto 0.1 K/mm3 (0.0-0.1); Basophils Percent Auto 1.1 % (0.2-1.2); Eosinophils Absolute Auto 0.1 K/mm3 (0-0.3); Eosinophils Percent Auto 1.4 % (0-4.4); Hematocrit 37.6 % (37.0-47.0); Hemoglobin 12.2 g/dL (12.0-15.0); Immature Granulocyte Absolute 0.02 K/mm3 (0.00-0.031); Immature Granulocyte Percent A 0.2 % (0-0.5); Lymphocytes Absolute Auto 3.04 K/mm3 (0.9-3.2); Lymphocytes Percent Auto 37.4 % (18.3-44.2); Mean Corpuscular HGB Conc 32.4 g/dl (32-36); Mean Corpuscular Hemoglobin 28.6 pg (26-34); Mean Corpuscular Volume 88.1 fl (80-100); Mean Platelet Volume 9.2 fl (7.4-10.4); Monocytes Absolute Auto 0.8 K/mm3 (0.1-0.6); Monocytes Percent Auto 10.1 % (2.6-8.5); Neutrophils Absolute Auto 4.1 K/mm3 (1.3-6.7); Neutrophils Percent Auto 49.8 % (45.5-73.1); Platelet Count Result 358 k/mm3 (150-375); Red Blood Count 4.27 M/mm3 (4.2-5.4); Red Cell Distribution Width 14.3 % (11.5-14.5); White Blood Count 8.1 K/mm3 (4.5-10.0)
[2020-08-01 17:40] LABS: Alanine Aminotransferase 10 U/L (4-35); Albumin Level 4.1 g/dL (3.5-5.1); Alkaline Phosphatase 60 U/L (38-126); Anion Gap 5 mmol/L (8-16); Aspartate Amino Transferase 21 U/L (14-36); Bilirubin,Total 0.3 mg/dL (0.2-1.3); Blood Urea Nitrogen 8 mg/dL (7-17); Carbon Dioxide 26 mmol/L (22-30); Chloride 107 mmol/L (98-107); Estimated CRCL calculation 95 ml/min; Estimated Glomerular Filt Rate > 60; Glucose 92 mg/dL (65-105); Lipase 81 U/L (23-300); Potassium 3.5 mmol/L (3.4-5.0); Sodium 138 mmol/L (137-145)
[2020-08-01 17:41] LABS: Add Urine Microscopic? YES; Appearance Urine Clear (Clear); Bilirubin Urine Negative (Negative); Blood Urine 2+ (Negative); Color Urine Straw (Yellow); Glucose Urine UA Negative (Negative); Ketones Urine Negative (Negative); Leukocyte Esterase Ur Trace LEU/UL (Negative); Mucus Urine Rare /lpf; Nitrate Urine Negative (Negative); Protein Urine Negative (Negative); RBC Urine >75 /hpf (0-2); Specific Grav Ur 1.014 (1.001-1.035); Squamous Epithelial Cell Urine Occasional /hpf (Few); Urobilinogen Urine Negative mg/dL (<2.0)
--- NOTE | 2020-08-01 18:24 | ED.ABDPAIN ---
HPI - Abdominal Pain General Chief Complaint: Abdominal Pain Stated Complaint: rlq pain.s/p csection Time Seen by Provider: 08/01/20 17:10 Source: patient Mode of arrival: ambulatory Limitations: no limitations History of Present Illness HPI narrative: This is a 25 year old female that presents to the ER for RLQ abdominal pain since last night. Reports the pain is constant in nature. It is intermittently sharp. Associated with some blood in the urine. Denies fever, vomiting, or dysuria. Related Data Home Medications Medication Instructions Recorded Confirmed No Home Medications 08/01/20 08/01/20 Allergies Allergy/AdvReac Type Severity Reaction Status Date / Time No Known Allergies Allergy Verified 08/01/20 17:13 Review of Systems Review of Systems: Narrative: CONSTITUTIONAL: Denies fever GASTROINTESTINAL: Reports abdominal pain. Denies nausea, vomiting, or diarrhea. GENITOURINARY: Reports hematuria. Denies dysuria All systems reviewed & are unremarkable except as noted in HPI and below PMFSH Past Medical History Medical History (Updated 08/01/20 @ 21:05 by Julia Alaniz PA-C) Generalized anxiety disorder Homozygous MTHFR mutation C677T Large for gestational age fetus Term Surgical History Surgical History (Updated 07/01/20 @ 18:35 by Gerardo Mixon MD) Previous section 01/18/20181398 lbs[facility] Family History Family History Other No pertinent family history Social History Social History (Updated 07/01/20 @ 18:36 by Gerardo Mixon MD) Smoking status: Never smoker Second hand tobacco smoke exposure: No Alcohol intake: never Substance use: former Substance use type: marijuana Gender identity (if verbalized by the patient): Female Spiritual care concerns: No Agree to blood products: Yes Exam Narrative: Exam Narrative: GENERAL: Well-appearing, well-nourished, and in no acute distress. HEAD: Normocephalic, atraumatic. EYES: EOMI. CHEST: Clear to auscultation. No respiratory distress. No wheezes rales or rhonchi HEART: Regular rate and rhythm. No murmur heard. Normal peripheral pulses. ABDOMEN: Soft, nondistended, normal active bowel sounds. Mild tenderness to palpation in the right lower quadrant, without guarding. No CVA tenderness EXTREMITIES: Normal range of motion. No edema. SKIN: Warm, dry, no rash. NEURO: No focal deficits. Alert and oriented x3. PSYCH: Normal mood and affect Course Consultations Consultation #1: poke with Dr. Mixon about patient and work-up. With patient being afebrile, no leukocytosis, these are likely seromas. Instructed on [id number] pain medication as needed and he will follow-up with her in clinic. Date: 08/01/20 Time: 21:11 Vital Signs Vital signs: Vital Signs Temperature 98.2 F 08/01/20 17:05 Pulse Rate 96 08/01/20 17:05 Respiratory Rate 18 08/01/20 17:05 Blood Pressure 116/100 H 08/01/20 17:05 Pulse Oximetry 100 08/01/20 17:05 Temperature 98.2 F 08/01/20 20:20 Pulse Rate 87 08/01/20 19:10 Respiratory Rate 18 08/01/20 17:05 Blood Pressure 127/87 08/01/20 19:10 Pulse Oximetry 98 08/01/20 19:10 MDM - Abdominal Pain MDM Narrative Medical decision making narrative: Patient presents to the ER for right lower quadrant abdominal/pelvic pain after recent section. She is afebrile and nontoxic-appearing. CBC is without leukocytosis. Hemoglobin is normal. Metabolic panel and lipase without concerning findings. UA with >75 red blood cells, and 7-9 white blood cells. Patient denies any urinary symptoms. This will be sent for culture. CT scan abdomen and pelvis shows fluid collections in the lower abdominal wall. Also shows a smaller one anterior to the bladder. Possible abscesses, although cou
[2020-08-01 19:10] VITALS: BP 127/87; PULSE 87; O2SAT 98
--- NOTE | 2020-08-01 19:27 | PC.NURSE ---
Patient to ultrasound.
[2020-08-01 20:20] VITALS: TEMP 36.8
[2020-08-01 21:23] VITALS: BP 134/71; PULSE 74; RESP 16; TEMP 36.3; O2SAT 97
== END 2020-08-01 21:26 | disposition home or self-care (01) ==
PROVIDERS: Physician Assistant; Emergency Provider Emergency Medicine
DX: N99.842 Postprocedural seroma of a genitourinary system organ or structure following a genitourinary system procedure (principal); O99.285 Endocrine, nutritional and metabolic diseases complicating the puerperium; E72.12 Methylenetetrahydrofolate reductase deficiency
CPT/HCPCS: 36415; 74177; 76830; 76856; 80053; 81001; 81025; 83690; 85025; 87086; 87088; 96374; 99284; J0131; Q9967

== ENCOUNTER 2023-10-17 08:07 | Outpatient (CLI) | payer OTHER, SELFPAY ==
--- NOTE | ~2023-10-17 | US_ITS ---
EXAMINATION: US OB /maternal detail DATE: 10/17/2023 10:25 INDICATION: screening. TECHNIQUE: Real-time ultrasound of the pelvis was performed. COMPARISON: None. FINDINGS: There is a single living fetus in breech presentation. The placenta is anterior, 3.6 cm from the cer vix. The cervical length is 4.3 cm on transabdominal images, which is normal. heart rate is 144 beats per minute (bpm). The deepest vertical pocket is 4.6 cm, which is normal. The following biometric data were obtained: Biparietal diameter (BPD): 5.0 cm; head circumference (HC): 19.0 cm; abdominal circumference (AC): 16 .0 cm; femur length (FL): 3.6 cm. These measurements are concordant. Estimated weight is 406 g +/- 61 g, which correlates with the 39th percentile when 02/25/24 is u sed as estimated date of delivery. As single measurements, these parameters are each equal to the following estimated gestational ages: BPD: 21 weeks 1 days. HC: 21 weeks 2 days. AC: 21 weeks 1 days. FL: 21 weeks 2 days. estimated gestational age based solely on measurements from this exam is 21 weeks 2 days +/- 1 weeks 3 days. The cerebral ventricles, cerebellum, cisterna magna, nuchal fold, and visualized portions of the spin e are normal. The heart is normal. The diaphragm, stomach, kidneys, and bladder are normal. There are two umbilical arteries to yield a 3-vessel cord. The cord insertion is normal. IMPRESSION: 1. Single living fetus in breech presentation. 2. Estimated weight is 406 g +/- 61 g, which correlates with the 39th percentile when 02/25/24 is used as estimated date of delivery. 3. Normal anatomic survey. Reviewed, dictated and finalized at location A. IMPRESSION: 1. Single living fetus in breech presentation. 2. Estimated weight is 406 g +/- 61 g, which correlates with the 39th pe rcentile when 02/25/24 is used as estimated date of delivery. 3. Normal anatomic survey.
== END 2023-10-17 08:08 | disposition home or self-care (01) ==
PROVIDERS: Visit Provider Obstetrics & Gynecology
DX: Z36.9 Encounter for antenatal screening, unspecified (principal); Z3A.21 21 weeks gestation of pregnancy
CPT/HCPCS: 76805